=== PATIENT | female | born 1955 | race African-American/Black ===

== ENCOUNTER 2017-12-04 06:42 | Day surgery (SDC) | payer OTHER ==
[2017-12-02 16:50] VITALS: BMI 24.3
[2017-12-04] MEDS ORDERED: BUPIVACAINE HCL/PF 0.25% (2.5MG/ML) 10 ML VIAL ONE ×2 (07:14→11:50)
--- NOTE | 2017-12-04 09:02 | HP ---
History & Physical Update - History History: No Change - Physical Physical: No Change - Assessment Assessment: No Change - Plan Plan: No Change (H & P done on 11/13/17)
[2017-12-04] MEDS ORDERED: PROPOFOL 20 ML ONE (09:05)
[2017-12-04] MEDS ORDERED: MIDAZOLAM HCL 2 MG/2 ML SINGLE DOSE VIAL ONE ×2 (09:05)
[2017-12-04] MEDS ORDERED: ROCURONIUM BROMIDE 50 MG/5 ML VIAL ONE ×2 (09:05→10:21)
[2017-12-04] MEDS ORDERED: ceFAZolin SODIUM 1 GM VIAL IVPB ONE (09:30)
[2017-12-04] MEDS ORDERED: DESFLURANE GAS 240 ML BOTTLE IH ONE (11:03)
[2017-12-04] MEDS ORDERED: NEOSTIGMINE METHYLSULFATE 0.5 MG/ML - 10 ML MDV ONE (11:51)
[2017-12-04] MEDS ORDERED: PHENYLEPHRINE HCL 10 MG/1 ML SINGLE DOSE VIAL ONE (11:51)
[2017-12-04] MEDS ORDERED: DEXAMETHASONE SOD PHOSPHATE 4 MG/1 ML VIAL ONE (11:52)
[2017-12-04] MEDS ORDERED: GLYCOPYRROLATE 0.2 MG/1 ML VIAL ONE (11:52)
[2017-12-04] MEDS ORDERED: LIDOCAINE HCL/PF 2% SDV 5ML VIAL ONE (11:52)
[2017-12-04] MEDS ORDERED: KETOROLAC TROMETHAMINE 30 MG/1 ML VIAL ONE (11:52)
[2017-12-04] MEDS ORDERED: ceFAZolin SODIUM 1 GM VIAL ONE (11:52)
[2017-12-04] MEDS ORDERED: ONDANSETRON 4 MG/2 ML VIAL IVPUSH PRN ×2 (12:29→12:45)
--- NOTE | 2017-12-04 12:41 | OP ---
Operative Note - Note: Operative Date: 12/04/17 Pre-Operative Diagnosis: Incisional hernia Operation: Robotic VON, CONVERTED TO OPEN INCISIONAL HERNIA REPAIR WITH MESH Post-Operative Diagnosis: Other (INTRAABDOMINAL ADHESIONS) Surgeon: Wilson Muñoz Anesthesia: General Estimated Blood Loss (mls): 50 Operative Report Dictated: Yes
[2017-12-04] MEDS ORDERED: LACTATED RINGERS SOLUTION 1,000 ML IV SCH (12:45)
--- NOTE | 2017-12-04 12:49 | SURG ---
Surgery Staffing Account Manager Note Staffing Account Manager: Luis Garcia PA-C Date of Service: 12/04/17 Diagnosis: Large incisional hernia >10 cm Procedure: Robotic lysis of adhesions, converted to open incisional hernia repair I was present for the entirety of the operative procedure. For further detail, please refer to operative report.
[2017-12-04] MEDS ORDERED: guaiFENesin 200 MG/10 ML 10 ML UNIT-DOSE CUPS PO PRN (16:46)
[2017-12-04 19:00] VITALS: BP 119/78; PULSE 98; TEMP 98.8
[2017-12-04] MEDS ORDERED: hydrOXYzine HCL 25 MG TABLET (FP) PO SCH (22:00)
[2017-12-04] MEDS ORDERED: ATORVASTATIN CA 20 MG TABLET (FP) PO SCH (22:00)
[2017-12-04] MEDS: RANITIDINE HCL 150 MG TABLET (FP) PO SCH (22:27)
[2017-12-05] MEDS: oxyCODONE HCL 5 MG TABLET PO PRN ×2 (02:07→09:45)
--- NOTE | 2017-12-05 06:23 | OP ---
DATE OF OPERATION: 12/04/2017 PROCEDURE: Robotic-assisted lysis of adhesions and attempted robotic incisional hernia repair converted to open incisional hernia repair with mesh. PREOPERATIVE DIAGNOSIS: Large incisional hernia. POSTOPERATIVE DIAGNOSIS: Large incisional hernia. Intraabdominal adhesions. SURGEON: Wilson Muñoz M.D. PERSONAL FITNESS MANAGER: Ponce Vela ANESTHESIA: General endotracheal anesthesia. FINDINGS ON PROCEDURE: This is a 61-year-old female who presents with a 15 x 10 cm bulge in the Pfannenstiel incision to the left of the midline, following hysterectomy more than 10 years ago. Patient has reducible bulge that would readily reappear with at least 6 cm defect. The patient is advised repair of the hernia and consent was obtained after discussing the risks, benefits, and alternatives of the procedure. DESCRIPTION OF PROCEDURE: Patient was brought to the operating room and placed in supine position. General endotracheal anesthesia was administered. Both arms were then tucked to the side. The abdomen was prepped and draped in usual sterile fashion. Using 0.5% Marcaine local anesthesia was administered to the proposed incision site. The peritoneal cavity was entered using the Veress needle technique by an 8 mm left subcostal incision. Pneumoperitoneum was established. This was followed by insertion of an 8-mm port. Two other 8-mm ports were inserted 10 cm away from each other at the same level under direct vision via the 3-D laparoscope. The peritoneal cavity was carefully inspected and shown to be free of any inadvertent injury. Omental adhesions to the posterior abdominal wall were encountered, and a large incisional hernia was noted practically occupying the whole Pfannenstiel incision. The target organ was set and 3 robotic arms were docked. A fenestrated grasper was inserted at the left-sided port, connected to bipolar cautery. The robotic EndoWrist rayo was inserted in the right-sided support and connected to monopolar cautery. The undersigned then scrubbed out and commenced the console part of the procedure. Part of the omental adhesions were taken down sharply using the laparoscopic rayo connected to monopolar cautery. An attempt to create the peritoneal pocket proved to be difficult due to the angulation and the large hernia. It was decided upon immediately to convert to open procedure. The robotic arms were undocked, and the ports were removed. Using the old Pfannenstiel incision, a 10 cm transverse incision was made using scalpel blade No. 10. The dissection was carried down to subcutaneous tissue. Further dissection using Bovie cautery was done until the hernia sac was encountered. This hernia sac was carefully from the fascia down to the preperitoneal space. The preperitoneal space was further dissected using Bovie cautery to create an extraperitoneal space. A 3-cm rent of the parietal peritoneum was closed with a continuous Vicryl 2-0 suture. After undermining of the peritoneum was done, a 10 x 15 cm Symbotex mesh was deployed and anchored superiorly to the posterior wall and laterally to the transverse abdominis muscle with Vicryl 0 suture. The fascia was closed in transverse fashion with multiple [id number] Prolene 0 sutures. After this was done, the wound was copiously irrigated with sterile normal saline until return was clear. The Norm fascia was closed with the continuous Vicryl 0 suture. Skin was closed with ace, and then covered with pressure dressing. The port sites were closed with subcuticular Biosyn 4-0 sutures and reinforced with Dermabond. Patient was successfully extubated and transferred to the post anesthesia care unit in satisfactory condition. Estimated blood loss was about 50 mL, wound class clean. The patient received 2 g of Ancef prior to start of the procedure. Austin [id number] MTDD
[2017-12-05] MEDS: RANITIDINE HCL 150 MG TABLET (FP) PO SCH (09:46)
--- NOTE | 2017-12-05 09:58 | PN ---
Progress Note, Physician Chief Complaint: day #1 s/p open ventral hernia repair - Current Medication List Current Medications: Active Medications Amlodipine Besylate (Norvasc -) 10 mg PO DAILY [facility] Last Admin: 12/05/17 09:46 Dose: 10 mg Atorvastatin Calcium (Lipitor -) 20 mg PO [facility] Last Admin: 12/04/17 22:27 Dose: Not Given Diphenhydramine HCl (Benadryl Injection -) 12.5 mg IVPB ONCE PRN PRN Reason: FOR ITCHING Last Admin: 12/04/17 14:20 Dose: 12.5 mg Fentanyl (Sublimaze Injection -) 50 mcg IVPUSH [id number] PRN PRN Reason: PAIN-PACU ORDER X 4 DOSES ONLY Last Admin: 12/04/17 15:25 Dose: 50 mcg Guaifenesin (Robitussin -) 10 ml PO Q6H PRN PRN Reason: COUGH Hydroxyzine HCl (Atarax -) 50 mg PO [facility] Last Admin: 12/04/17 22:27 Dose: Not Given Lactated Ringer's (Lactated Ringers Solution) 1,000 mls @ 125 mls/hr IV ASDIR [facility] Last Admin: 12/04/17 19:59 Dose: Not Given Lisinopril (Prinivil) 40 mg PO DAILY [facility] Last Admin: 12/05/17 09:46 Dose: 40 mg Metoprolol Succinate (Toprol Xl -) 50 mg PO DAILY [facility] Last Admin: 12/05/17 09:45 Dose: 50 mg Ondansetron HCl (Zofran Injection) 4 mg IVPUSH Q6H PRN PRN Reason: NAUSEA Ondansetron HCl (Zofran Injection) 4 mg IVPUSH Q6H PRN PRN Reason: NAUSEA AND/OR VOMITING Oxycodone HCl (Roxicodone -) 5 mg PO Q4H PRN PRN Reason: PAIN Last Admin: 12/05/17 09:45 Dose: 5 mg Ranitidine HCl (Zantac -) 150 mg PO BID [facility] Last Admin: 12/05/17 09:46 Dose: 150 mg Solifenacin (Vesicare -) 5 mg PO DAILY [facility] Last Admin: 12/05/17 09:46 Dose: 5 mg - Objective Vital Signs: Vital Signs Temperature 98.8 F 12/04/17 17:00 Pulse Rate 98 H 12/04/17 17:00 Respiratory Rate 18 12/04/17 21:00 Blood Pressure 119/78 12/04/17 17:00 O2 Sat by Pulse Oximetry (%) 98 12/04/17 21:00 Assessment/Plan Pt is deaf/mute- communicated via writing. She has some c/o pain, and will be given PO pain meds. Otherwise no anesthetic issues/complications
[2017-12-05] MEDS ORDERED: SOLIFENACIN SUCCINATE 5 MG TAB (FP) PO SCH (10:00)
[2017-12-05] MEDS ORDERED: amLODIPine BESYLATE 10 MG TABLET (FP) PO SCH (10:00)
[2017-12-05] MEDS ORDERED: LISINOPRIL 20 MG TABLET (FP) PO SCH (10:00)
== END 2017-12-05 13:38 | disposition home or self-care (01) ==
LOC: JASU-SURG 06:42 → JASUSAT 06:42 → J6S 17:15 → JASUSAT 12-05 13:38
PROVIDERS: ATTEND Surgery
PROC: 8E0W0CZ Robotic Assisted Procedure of Trunk Region, Open Approach (ICD-10-PCS; 2017-12-04)
PROC: 0WUF0JZ Supplement Abdominal Wall with Synthetic Substitute, Open Approach (ICD-10-PCS; principal; 2017-12-04 08:00)
DX: K43.2 Incisional hernia without obstruction or gangrene (principal); Z53.31 Laparoscopic surgical procedure converted to open procedure
CPT/HCPCS: 49560; 49568; S2900; 74018-TC-FY; 94760

== ENCOUNTER 2018-12-02 07:08 | Day surgery (SDC) | payer OTHER ==
[2018-11-30 10:03] VITALS: BMI 24.8
[~2018-12-02 07:08] MED LIST: ACETAMINOPHEN 325 MG TABLET (FP) PO PRN; CIPROFLOXACIN HCL 0.3% OPHTH 2.5ML BOTTLE OP SCH; KETOROLAC TROMETHAMINE 0.5% EYE DROP 1 DROP DROPS OP SCH; PHENYLEPHRINE 2.5% OPHTH SOLN 15 ML BOTTLE OP SCH; TOBRAMYCIN/DEXAMETHASONE OPHTH. OINTMENT 1 TUBE TP ONE; TROPICAMIDE 1% OPHTH SOLN 15 ML BOTTLE OP SCH
[2018-12-02] MEDS ORDERED: BSS (NA/CA/MG/K) BALANCED SALT SOLUTION OPHTH SOLN 15 ML BOTTLE ONE (07:18)
[2018-12-02] MEDS ORDERED: TOBRAMYCIN/DEXAMETHASONE OPHTH. OINTMENT 1 TUBE ONE (07:18)
[2018-12-02] MEDS ORDERED: TETRACAINE 0.5% OPHTH SOLN 2 ML BOTTLE ONE (07:18)
[2018-12-02] MEDS ORDERED: EPINEPHrine/PF 1 MG/1 ML (1:1,000) AMPULE ONE (07:35)
[2018-12-02] MEDS ORDERED: MIDAZOLAM HCL 2 MG/2 ML SINGLE DOSE VIAL ONE (07:37)
[2018-12-02] MEDS ORDERED: CIPROFLOXACIN HCL 0.3% OPHTH 2.5ML BOTTLE ONE (07:42)
[2018-12-02] MEDS ORDERED: TROPICAMIDE 1% OPHTH SOLN 15 ML BOTTLE ONE (07:42)
[2018-12-02] MEDS ORDERED: PHENYLEPHRINE 2.5% OPHTH SOLN 15 ML BOTTLE ONE (07:42)
[2018-12-02] MEDS ORDERED: KETOROLAC TROMETHAMINE 0.5% EYE DROP 1 DROP DROPS ONE (07:42)
[2018-12-02] MEDS ORDERED: SUCCINYLCHOLINE CHLORIDE 200 MG/10 ML SYRINGE ONE (08:19)
[2018-12-02] MEDS ORDERED: LIDOCAINE HCL/PF 2% SDV 5ML VIAL ONE ×2 (08:19→08:35)
[2018-12-02] MEDS ORDERED: PROPOFOL 20 ML ONE ×4 (08:19→09:27)
[2018-12-02] MEDS ORDERED: ONDANSETRON 4 MG/2 ML VIAL IVPUSH PRN (08:25)
[2018-12-02] MEDS ORDERED: oxyCODONE HCL 5 MG TABLET PO PRN (08:25)
--- NOTE | 2018-12-02 08:25 | HP ---
History & Physical Update - History History: No Change - Physical Physical: No Change - Assessment Assessment: No Change - Plan Plan: No Change (reviewed h and p by Dr. Stevens from 11/29/18 no changes)
--- NOTE | 2018-12-02 08:29 | HP ---
- Patient Scheduled date of Surgery: 12/02/18 Scheduled Surgical Procedure: Phacoemulsification and cataract extraction with PCIOL Affected Eye: Right Chief Complaint (Indication for surgery): Decreased vision affecting ADLs - Ocular History Other Eye History: Other (none) Eye Medications: vigamox Previous Eye Surgery: none - Medical History Illnesses: Hypertension, Hypercholesterolemia, Other (congential deafness, pre- diabetic) Current Medications: Ambulatory Orders Amlodipine Besylate 10 mg PO DAILY 12/02/17 Lisinopril [Prinivil -] 40 mg PO DAILY 12/02/17 Metoprolol Succinate 50 mg PO DAILY 12/02/17 Ranitidine HCl 150 mg PO BID 12/02/17 Simvastatin 40 mg PO HS 12/02/17 Solifenacin Succinate [Vesicare -] 5 mg PO DAILY 12/02/17 hydrOXYzine HCL 50 mg PO HS 12/02/17 Allergies/Adverse Reactions: Allergies Allergy/AdvReac Type Severity Reaction Status Date / Time No Known Allergies Allergy Verified 11/30/18 10:09 Ocular Examination - Best Corrected Visual Acuity Distance: Right eye: 20/400 Distance: Left eye: 20/60 - External/Slit Lamp Examination Abnormalities: none - Intraocular Pressure Intraocular Pressure - Right eye: 19 Intraocular Pressure-Left eye: 19 - Lens Lens: 3+ NS 4+ psc - Vitreous/Retina Vitreous/Retina: C:D ? hazy view drusen peripherally - Special Examination M - Right eye: +1.25 M - Left eye: +1.50 K - Right eye: 44.25/46 x090 K - Left eye: 44.5/45.5 085 AL - Right eye: 22.29 AL - Left eye: 22 IOL bag: +23.5 IOL sulcus: +22.5 IOL AC: +19.0 - Impression Impression: Cataract Right Eye (PSC) - Plan Plan: Phacoemulsification and cataract extraction - IOL Right eye Post-hospital care will be provided in office on: 12/03/18
[2018-12-02] MEDS ORDERED: LACTATED RINGERS SOLUTION 1,000 ML IV SCH (08:30)
[2018-12-02] MEDS ORDERED: BUPIVACAINE HCL/PF 0.75% 10 ML VIAL ONE (08:34)
[2018-12-02] MEDS ORDERED: BUPIVACAINE HCL/PF 0.75% 10 ML VIAL NR ONE (09:15)
[2018-12-02] MEDS ORDERED: LIDOCAINE HCL/PF 2% SDV 5ML VIAL INF ONE (09:15)
[2018-12-02] MEDS ORDERED: POVIDONE-IODINE 5% OPHTHALMIC PREP 30 ML SOLUTION OD ONE (09:19)
[2018-12-02] MEDS ORDERED: TRYPAN BLUE 0.5 ML DISP.SYRIN ONE ×2 (09:24→09:25)
[2018-12-02] MEDS ORDERED: LIDOCAINE HCL 1% PRESERVATIVE FREE - 30ML VIAL IO ONE (09:26)
[2018-12-02] MEDS ORDERED: BSS (NA/CA/MG/K) BALANCED SALT SOLUTION OPHTH SOLN 15 ML BOTTLE OD ONE (09:26)
[2018-12-02] MEDS ORDERED: CHONDROITIN SU A/HYALUR SOD 1 KIT IO ONE (09:26)
[2018-12-02] MEDS ORDERED: TRYPAN BLUE 0.5 ML DISP.SYRIN IO ONE (09:27)
[2018-12-02] MEDS ORDERED: EPINEPHrine/PF 1 MG/1 ML (1:1,000) AMPULE SQ ONE (09:32)
[2018-12-02] MEDS ORDERED: TOBRAMYCIN/DEXAMETHASONE OPHTH. OINTMENT 1 TUBE TP ONE (09:50)
--- NOTE | 2018-12-02 09:59 | OP ---
Ophthalmology Operative Note Pre-Operative Diagnosis: Cataract Affected Eye: Right Operation: Phacoemulsification and cataract extraction with PCIOL (using trypan blue) Findings: mature cataract right eye Post-Operative Diagnosis: Other (mature cataract) [employer] Worker: None Anesthesiologist: Jeannie Chao Anesthesia: Retrobulbar Specimens Removed: none Estimated blood loss: <1 cc Drains & Tubes with Location: none Operative Report Dictated: Yes
[2018-12-02 12:39] VITALS: PULSE 75
[2018-12-02 13:01] VITALS: BP 130/63; TEMP 97.6
--- NOTE | 2018-12-02 14:07 | OP ---
DATE OF OPERATION: DATE OF DICTATION: 12/02/2018 PREOPERATIVE DIAGNOSIS: Posterior subcapsular cataract, right eye. POSTOPERATIVE DIAGNOSIS: Mature cataract, right eye. PROCEDURE: Phacoemulsification, cataract extraction with insertion of posterior chamber intraocular lens, right eye. SURGEON: Lakeshia Aly MD WEBMASTER: None. ANESTHESIA: Retrobulbar block. ANESTHESIOLOGIST: Jeannie Chao MD OPERATIVE PROCEDURE: The patient was satisfactorily intravenously sedated and then received a 50/50 mixture of lidocaine 2% and Marcaine 0.75%. A Van Lint lid block was delivered to the right eye using 3 mL of the mixture and a retrobulbar injection using 4 mL of the mixture. The patient was then prepped and draped in the usual sterile fashion so as to expose only the right eye. Ophthalmic Betadine was instilled into the inferior fornix, and the lashes were taped out of the surgical field. An eyelid speculum was placed into the right eye. A paracentesis was made in superotemporal clear cornea at the limbus. An air bubble was injected into the anterior chamber, and trypan blue was dripped on the anterior capsular edge. Viscoelastic material was instilled into the anterior chamber via the paracentesis and used to remove the trypan blue. A 2.4-mm keratome was then used to create the main incision in temporal clear cornea at the limbus. A continuous curvilinear capsulorrhexis was performed using cystotome and Utrata forceps. Hyrodissection of the lens cortex was performed using BSS on a cannula until the nucleus was noted to be freely rotating. The phacoemulsification tip was then inserted via the main wound and used to sculpt 2 perpendicular grooves into the lens nucleus. The nucleus was cracked into 4 quadrants. Each quadrant was lifted out of the capsule into the iris plane and individually phacoemulsified. The remaining cortical material was then aspirated using the irrigation and aspiration port. The capsular bag was inflated using Provisc, and a preloaded AcrySof lens model AU00T0, power +23.5 diopter was injected into the capsular bag and centered using a Sinskey hook. The residual viscoelastic material was removed from the anterior chamber using irrigation and aspiration. The wound edges were hydrated using BSS. The wound was tested for leakage. It was found to be slightly leaky; therefore, one 10-0 nylon suture was placed in an X fashion across the wound, again tested, and found to be watertight. Tobradex ointment was placed in the eye. The speculum was removed from the eye, the eyelid was closed and then a sterile dressing and shield were placed over the eye. The patient was transferred to the recovery room in stable condition and told to follow up in 1 day. Austin [id number]
== END 2018-12-02 12:00 | disposition home or self-care (01) ==
LOC: JASU-SURG 07:08
PROVIDERS: ATTEND Ophthalmology
PROC: 08RJ3JZ Replacement of Right Lens with Synthetic Substitute, Percutaneous Approach (ICD-10-PCS; principal; 2018-12-02 08:30)
DX: H25.041 Posterior subcapsular polar age-related cataract, right eye (principal); I10 Essential (primary) hypertension; E78.00 Pure hypercholesterolemia, unspecified; R73.03 Prediabetes; H90.5 Unspecified sensorineural hearing loss
CPT/HCPCS: 94760

== ENCOUNTER 2019-05-26 07:03 | Day surgery (SDC) | payer OTHER ==
[~2019-05-26 07:03] MED LIST changes: -CIPROFLOXACIN HCL 0.3% OPHTH 2.5ML BOTTLE OP SCH; -PHENYLEPHRINE 2.5% OPHTH SOLN 15 ML BOTTLE OP SCH; -TROPICAMIDE 1% OPHTH SOLN 15 ML BOTTLE OP SCH
[2019-05-26] MEDS ORDERED: LIDOCAINE HCL/PF 1% SDV 5ML VIAL ONE (07:15)
[2019-05-26] MEDS ORDERED: BUPIVACAINE HCL/PF 0.75% 10 ML VIAL ONE (07:15)
[2019-05-26] MEDS ORDERED: BSS (NA/CA/MG/K) BALANCED SALT SOLUTION OPHTH SOLN 15 ML BOTTLE ONE (07:15)
[2019-05-26] MEDS ORDERED: LIDOCAINE HCL/PF 2% SDV 5ML VIAL ONE (07:15)
[2019-05-26] MEDS ORDERED: PHENYLEPHRINE 2.5% OPHTH SOLN 15 ML BOTTLE ONE (08:30)
[2019-05-26] MEDS ORDERED: CIPROFLOXACIN HCL 0.3% OPHTH 2.5ML BOTTLE ONE (08:30)
[2019-05-26 08:37] VITALS: BMI 26.1
[2019-05-26] MEDS: TROPICAMIDE 1% OPHTH SOLN 15 ML BOTTLE OP SCH ×3 (08:45→09:15)
[2019-05-26] MEDS: PHENYLEPHRINE 2.5% OPHTH SOLN 15 ML BOTTLE OP SCH ×2 (08:45→09:15)
[2019-05-26] MEDS: KETOROLAC TROMETHAMINE 0.5% EYE DROP 1 DROP DROPS ONE ×2 (09:00→09:15)
[2019-05-26] MEDS: CIPROFLOXACIN HCL 0.3% OPHTH 2.5ML BOTTLE OP SCH ×2 (09:00→09:15)
[2019-05-26] MEDS ORDERED: MIDAZOLAM HCL 2 MG/2 ML SINGLE DOSE VIAL ONE (10:13)
--- NOTE | 2019-05-26 10:32 | HP ---
History & Physical Update - History History: No Change - Physical Physical: No Change - Assessment Assessment: No Change - Plan Plan: No Change (H and p reviewed from Dr. Stevens from 05/19/2019 no changes)
--- NOTE | 2019-05-26 10:36 | HP ---
- Patient Scheduled date of Surgery: 05/26/19 Scheduled Surgical Procedure: Phacoemulsification and cataract extraction with PCIOL Affected Eye: Left Chief Complaint (Indication for surgery): Decreased vision affecting ADLs - Ocular History Other Eye History: Other (none) Eye Medications: vigamox tid os Previous Eye Surgery: s/p ce/pciol Od - Medical History Illnesses: Hypertension, Hypercholesterolemia, Other (deafness) Current Medications: Ambulatory Orders Amlodipine Besylate 10 mg PO DAILY 12/02/17 Lisinopril [Prinivil -] 40 mg PO DAILY 12/02/17 Metoprolol Succinate 50 mg PO DAILY 12/02/17 Simvastatin 40 mg PO HS 12/02/17 Solifenacin Succinate [Vesicare -] 5 mg PO DAILY 12/02/17 hydrOXYzine HCL 50 mg PO HS 12/02/17 Allergies/Adverse Reactions: Allergies Allergy/AdvReac Type Severity Reaction Status Date / Time No Known Allergies Allergy Verified 05/26/19 09:11 Ocular Examination - Best Corrected Visual Acuity Distance: Right eye: 20/30 Distance: Left eye: 20/400 - External/Slit Lamp Examination Abnormalities: none - Intraocular Pressure Intraocular Pressure - Right eye: 17 Intraocular Pressure-Left eye: 19 - Lens Lens: 2+ NS 3+ PSC - Vitreous/Retina Vitreous/Retina: C:D 0.3 hazy view, peripheral drusen - Special Examination M - Right eye: plan0-1.00 x 105 M - Left eye: +1.50 K - Right eye: 45.30/46/25 x 180 K - Left eye: 44.5/45.5 x 086 AL - Right eye: 22.29 AL - Left eye: 22 IOL bag: +24.o AUOOTO IOL sulcus: +23.0 [id number] IOL AC: +20.0 MTA 4uo - Impression Impression: Cataract Left Eye (PSC) - Plan Plan: Phacoemulsification and cataract extraction - IOL Left eye
[2019-05-26] MEDS ORDERED: LIDOCAINE HCL/PF 2% SDV 5ML VIAL INF ONE (11:07)
[2019-05-26] MEDS ORDERED: POVIDONE-IODINE 5% OPHTHALMIC PREP 30 ML SOLUTION OS ONE (11:07)
[2019-05-26] MEDS ORDERED: BUPIVACAINE HCL/PF 0.75% 10 ML VIAL PNB ONE (11:07)
[2019-05-26] MEDS ORDERED: BSS (NA/CA/MG/K) BALANCED SALT SOLUTION OPHTH SOLN 15 ML BOTTLE OS ONE (11:08)
[2019-05-26] MEDS ORDERED: CHONDROITIN SU A/HYALUR SOD 1 KIT IO ONE (11:08)
[2019-05-26] MEDS ORDERED: EPINEPHrine/PF 1 MG/1 ML (1:1,000) AMPULE SQ ONE (11:09)
[2019-05-26] MEDS ORDERED: TRYPAN BLUE 0.5 ML DISP.SYRIN ONE (11:10)
[2019-05-26] MEDS ORDERED: TOBRAMYCIN/DEXAMETHASONE OPHTH. OINTMENT 1 TUBE TP ONE (11:27)
--- NOTE | 2019-05-26 11:39 | OP ---
Ophthalmology Operative Note Pre-Operative Diagnosis: Cataract (psc) Affected Eye: Left Operation: Phacoemulsification and cataract extraction with PCIOL Findings: psc cataract left eye Post-Operative Diagnosis: Same as Pre-op Jacket Preparer: None Anesthesiologist: Ronit Welch Anesthesia: Retrobulbar Specimens Removed: none Estimated blood loss: < 1cc Operative Report Dictated: Yes
[2019-05-26 12:08] VITALS: TEMP 97.4
[2019-05-26 12:38] VITALS: BP 145/67; PULSE 50
--- NOTE | 2019-05-26 12:42 | OP ---
DATE OF OPERATION: 05/26/2019 PREOPERATIVE DIAGNOSIS: Posterior subcapsular cataract, left eye. POSTOPERATIVE DIAGNOSIS: Posterior subcapsular cataract, left eye. PROCEDURE: Phacoemulsification and cataract extraction with insertion of posterior chamber intraocular lens, left eye. SURGEON: Lakeshia Aly MD CIVIL DRAFTSMAN: None. ANESTHESIA: Retrobulbar block. ANESTHESIOLOGIST: RACQUEL Pruitt OPERATIVE PROCEDURE: Following satisfactory intravenous sedation, the patient received local anesthesia using a 50/50 mixture of lidocaine 2% and Marcaine 0.75%. A Van Lint lid block was delivered to the left eye using 3 mL of the mixture and a retrobulbar injection using 3 mL of the mixture. The patient was then prepped and draped in the usual sterile fashion so as to expose only the left eye. Ophthalmic Betadine was instilled into the inferior fornix and lashes were taped out of the surgical field. An eyelid speculum was placed into the left eye. Paracentesis was made in inferior temporal clear cornea at the limbus. Then 0.5 mL of nonpreserved lidocaine 1% was injected into the anterior chamber and then 1 mL of dilute epinephrine 1:10,000 was injected into the anterior chamber to improve pupillary dilation. Viscoelastic material was instilled into the anterior chamber via the paracentesis. A 2.4-mm keratome blade was then used to create the main incision in temporal clear cornea at the limbus. A continuous curvilinear capsulorrhexis was performed using a cystotome and Utrata forceps. Hydrodissection of the lens cortex was performed using BSS on a cannula until the nucleus was noted to be freely rotating. The phacoemulsification tip was then inserted via the main wound and used to scope 2 perpendicular grooves into the lens nucleus. The nucleus was cracked into 4 quadrants. Each quadrant was lifted out of the capsule into the iris plane and individually phacoemulsified. The remaining cortical material was then aspirated using the irrigation/aspiration port. The capsular bag was inflated using ProVisc and a preloaded AcrySof lens model [id number] power +24.0 diopters was injected into the capsular bag. It was centered using a Sinskey hook. The residual viscoelastic material was removed from the anterior chamber using irrigation and aspiration. The wound edges were hydrated using BSS. The wound was tested for leakage and was found to be watertight. Tobradex ointment was placed in the eye, and the speculum was removed from the eye, and the eyelid was closed. A sterile dressing and shield were placed over the eye. The patient was transferred to the recovery room in stable condition, told to follow up in 1 day. LAKESHIA LAY M.D. [id number]
== END 2019-05-26 12:25 | disposition home or self-care (01) ==
LOC: JASU-SURG 07:03
PROVIDERS: ATTEND Ophthalmology
PROC: 08RK3JZ Replacement of Left Lens with Synthetic Substitute, Percutaneous Approach (ICD-10-PCS; principal; 2019-05-26 10:30)
DX: H26.9 Unspecified cataract (principal)

== ENCOUNTER 2021-12-10 11:06 | Emergency (ER) | payer OTHER ==
[2021-12-10 11:24] VITALS: BP 187/79; PULSE 76; RESP 18; TEMP 98.2; BMI 28.2
[2021-12-10] MEDS ORDERED: ACETAMINOPHEN 1000 MG/100 ML BAG IVPB ONE (12:13)
[2021-12-10] MEDS ORDERED: ACETAMINOPHEN 325 MG TABLET (FP) PO ONE (12:17)
[2021-12-10] MEDS ORDERED: KETOROLAC TROMETHAMINE 15 MG/ML VIAL IVPUSH ONE (12:17)
[2021-12-10 13:17] LABS: BASO % 1.1 % (0-2.0); EOS % 0.8 % (0-4.5); HEMATOCRIT 36.5 % (32.4-45.2); HEMOGLOBIN 11.9 GM/dL (10.7-15.3); LYMPH % 26.2 % (8-40); MCH 30.2 pg (25.7-33.7); MCHC 32.7 g/dl (32.0-36.0); MEAN CELL VOLUME 92.4 fl (80-96); MONO % 6.8 % (3.8-10.2); NEUT % 65.1 % (42.8-82.8); PLATELET COUNT 312 10^3/uL (134-434); RBC 3.95 M/mm3 (3.60-5.2); RDW 16.4 % (11.6-15.6); WHITE BLOOD COUNT 8.6 K/mm3 (4.0-10.0)
[2021-12-10 13:19] LABS: PH,URINE 5.5 (5.0-8.0); URINE APPEARANCE CLEAR; URINE BILIRUBIN NEGATIVE (NEGATIVE); URINE COLOR YELLOW; URINE GLUCOSE (UA) NEGATIVE (NEGATIVE); URINE KETONE NEGATIVE (NEGATIVE); URINE LEUK ESTERASE NEGATIVE (NEGATIVE); URINE NITRITE NEGATIVE (NEGATIVE); URINE PROTEIN TRACE (NEGATIVE); URINE UROBILINOGEN 0.2 mg/dL (0.2-1.0)
[2021-12-10 13:48] LABS: MAGNESIUM 2.5 mg/dL (1.8-2.4)
[2021-12-10 13:51] LABS: BLOOD UREA NITROGEN 19.4 mg/dL (7-18)
[2021-12-10 13:52] LABS: ALBUMIN 4.4 g/dl (3.4-5.0)
[2021-12-10 13:54] LABS: CREATININE 1.1 mg/dL (0.55-1.3)
[2021-12-10 13:56] LABS: BILIRUBIN,TOTAL 0.7 mg/dL (0.2-1); TOT PROT 8.2 g/dl (6.4-8.2)
== END 2021-12-10 15:21 | disposition home or self-care (01) ==
LOC: JER 11:06
PROC: 3E033NZ Introduction of Analgesics, Hypnotics, Sedatives into Peripheral Vein, Percutaneous Approach (ICD-10-PCS; principal; 2021-12-10)
PROC: 3E0333Z Introduction of Anti-inflammatory into Peripheral Vein, Percutaneous Approach (ICD-10-PCS; 2021-12-10)
DX: R53.1 Weakness (principal); M25.511 Pain in right shoulder
CPT/HCPCS: 36415; 73030-TC-RT-FY; 73060-TC-RT-FY; 80053; 81003; 83735; 84100; 85025; 87086; 93005; 93010; 99284-25